=== PATIENT | female | born 1970 | race Caucasian/White ===

== ENCOUNTER 2021-02-07 12:17 | Emergency (ER) | payer MEDICAID ==
[~2021-02-07] VITALS: Ht 165.1 cm; Wt 95.5 kg
[2021-02-07] MEDS ORDERED: IBUPROFEN 800 MG TABLET PO ONE (13:15)
[2021-02-07 14:46] VITALS: BP 116/68
== END 2021-02-07 14:51 | disposition home or self-care (01) ==
LOC: EMS 12:25
DX: S60.221A Contusion of right hand, initial encounter (principal); S60.211A Contusion of right wrist, initial encounter; W22.8XXA Striking against or struck by other objects, initial encounter; Y93.89 Activity, other specified; Y92.89 Other specified places as the place of occurrence of the external cause; Y99.8 Other external cause status
CPT/HCPCS: 99284; 73110-TC; 73130-TC; Z7502; Z7610

== ENCOUNTER 2024-01-14 18:56 | Emergency (ER) | payer MEDICAID, OTHER ==
[~2024-01-14] VITALS: Ht 154.9 cm; Wt 79.5 kg
[2024-01-14] MEDS ORDERED: OMEP20CA12 PO (19:00)
[2024-01-14 20:32] LABS: BASOPHILS % (AUTO) 1.1 % (0.0-2.0); EOSINOPHILS % (AUTO) 5.1 % (1.0-6.0); HEMATOCRIT 41.4 % (36-46); LYMPHOCYTES # (AUTO) 5.7 K/uL (1.0-4.8); LYMPHOCYTES % (AUTO) 42.2 % (22.0-44.0); MEAN CORPUSCULAR HEMOGLOBIN 30.9 pg (26.0-34.0); MEAN CORPUSCULAR HGB CONC 33.7 G/dL (31.0-37.0); MEAN CORPUSCULAR VOLUME 92 fL (80-100); MONOCYTES # (AUTO) 0.7 K/uL (0.1-1.0); NEUTROPHILS # (AUTO) 6.3 K/uL (1.8-7.7); NEUTROPHILS % (AUTO) 46.6 % (40.0-70.0); PLATELET COUNT (AUTO) 329 K/uL (150-450); RED BLOOD CELL COUNT(AUTO) 4.51 MIL/uL (4.00-5.20); RED CELL DISTRIBUTION WIDTH 13.7 % (11.5-14.5); WHITE BLOOD COUNT (AUTO) 13.4 K/uL (4.5-11.0)
[2024-01-14 20:37] LABS: ANION GAP 11 mmol/L (8-16); CALCIUM, TOTAL 10.2 mg/dL (8.8-10.5); CARBON DIOXIDE 27 mmol/L (22-29); CHLORIDE 106 mmol/L (98-107); CREATININE 0.94 mg/dL (0.60-1.30); GLOMERULAR FILTR. RATE CALC > 60 mL/min (>60); GLUCOSE,RANDOM 110 mg/dL (70-110); SODIUM SERUM 144 mmol/L (136-145); UREA NITROGEN, BLOOD 24 mg/dL (7-18)
[2024-01-14 20:57] LABS: TROPONIN I-HIGH SENSITIVITY Less Than 4 ng/L (<51)
[2024-01-14] MEDS: LORazepam 1 MG TABLET PO ONE (22:34)
[2024-01-14] MEDS ORDERED: LORA-999 PO (23:02)
[2024-01-14 23:15] VITALS: BP 139/76; PULSE 72; RESP 22; TEMP 97.9
== END 2024-01-14 23:40 | disposition home or self-care (01) ==
LOC: EMS 18:58
DX: F41.0 Panic disorder [episodic paroxysmal anxiety] (principal)
CPT/HCPCS: 71045; 80048; 84484; 85025; 93005; 99285; 36415-L1; 36415-TC